=== PATIENT | female | born 1935 | race Caucasian/White ===

== ENCOUNTER 2017-08-27 16:42 | Emergency (ER) | payer MEDICARE, OTHER ==
[2017-08-27] MEDS: LIDOCAINE 1%/EPI 30 ML INJ INJ (21:02)
== END 2017-08-27 22:52 | disposition home or self-care (01) ==
LOC: FTE 16:42
DX: S01.112A Laceration without foreign body of left eyelid and periocular area, initial encounter (principal); W19.XXXA Unspecified fall, initial encounter; Y92.9 Unspecified place or not applicable
CPT/HCPCS: 12013; 70450; 70486; 72125; 99285-25

== ENCOUNTER 2018-11-21 09:53 | Emergency (ER) | payer MEDICARE, OTHER ==
[2018-11-21] MEDS ORDERED: LIDOCAINE 1% (MDV) 20 ML INJ SC (10:30)
== END 2018-11-21 12:53 | disposition home or self-care (01) ==
LOC: E/R 09:53
DX: S00.83XA Contusion of other part of head, initial encounter (principal); W18.39XA Other fall on same level, initial encounter; Y92.9 Unspecified place or not applicable
CPT/HCPCS: 70450; 99284-25